=== PATIENT | female | born 1975 | race Caucasian/White ===

== ENCOUNTER 2017-03-05 10:19 | Emergency (ER) | payer OTHER ==
[~2017-03-05] VITALS: Ht 165.1 cm; Wt 59.8 kg
[~2017-03-05 10:19] MED LIST: ATARAX,VISTARIL50 MG PO; MACROBID100 MG PO; MOTRIN800 MG PO; NAPROSYN500 MG PO; NEXIUM40 MG PO; PROVENTIL HFA6.7 GM IH; PYRIDIUM100 MG PO; SEROQUEL100 MG PO; ZITHROMAX Z-PA250 MG PO; ZOFRAN4 MG PO
[2017-03-05] MEDS ORDERED: NAPROXEN500 MG PO (11:36)
[2017-03-05 12:12] VITALS: BP 114/60
== END 2017-03-05 12:12 | disposition home or self-care (01) ==
LOC: EME 10:19
DX: S39.012A Strain of muscle, fascia and tendon of lower back, initial encounter (principal); S16.1XXA Strain of muscle, fascia and tendon at neck level, initial encounter; W01.0XXA Fall on same level from slipping, tripping and stumbling without subsequent striking against object, initial encounter; Y99.0 Civilian activity done for income or pay; Z88.6 Allergy status to analgesic agent; Z87.891 Personal history of nicotine dependence
CPT/HCPCS: 73030; 73502; 99281; 99283

== ENCOUNTER 2017-11-29 12:15 | Emergency (ER) | payer BC ==
[~2017-11-29] VITALS: Ht 165.1 cm; Wt 69.8 kg
[~2017-11-29 12:15] MED LIST changes: +NAPROXEN500 MG PO
[2017-11-29 12:44] LABS: BASOPHIL (%) 0.4 % (0-1); EOSINOPHIL (%) 2.5 % (0-5); EOSINOPHIL COUNT 0.2 K/uL (0-0.3); HEMATOCRIT 38.6 % (36.0-46.0); HEMOGLOBIN 12.9 G/DL (11.9-15.5); IMMATURE GRANULOCYTE (%) 0.2 % (0.0-0.7); LYMPHOCYTE (%) 49.2 % (15-42); LYMPHOCYTE COUNT 4.5 K/uL (1.0-2.8); MCH 31.7 PG (29.0-34.0); MCHC 33.4 G/DL (30.0-36.0); MCV 94.8 FL (83-99); MONOCYTE (%) 6.3 % (3-12); MONOCYTE COUNT 0.6 K/uL (0-0.8); NEUTROPHIL (%) 41.4 % (45-76); NEUTROPHIL COUNT 3.8 K/uL (1.8-6.4); NRBC (%) 0.2 /100 WBC (0-0); PLATELET COUNT 225 K/uL (156-360); RBC DIS.WIDTH-CV 13.5 % (11.8-14.6); RBC DIS.WIDTH-SD 47.3 % (39-53); RED BLOOD COUNT 4.07 M/uL (3.80-5.20); WHITE BLOOD COUNT 9.1 K/uL (4.1-10.2)
[2017-11-29 12:53] LABS: CHLORIDE 105 mEq/L (99-109); POTASSIUM 4.5 mEq/L (3.7-5.4); SODIUM 139 mEq/L (136-147)
[2017-11-29 12:55] LABS: GLUCOSE 84 mg/dL (70-99)
[2017-11-29 12:59] LABS: CREATININE 0.8 mg/dL (0.6-1.3); GFR ESTIMATE (CALCULATED) > 59 mL/min/; UREA NITROGEN (BUN) 14 mg/dL (9-23)
[2017-11-29] MEDS ORDERED: MECLIZINE HCL25 MG PO (14:15)
[2017-11-29 14:45] VITALS: BP 109/69
== END 2017-11-29 15:01 | disposition home or self-care (01) ==
LOC: EME 12:15
PROVIDERS: Emergency Medicine
DX: R42 Dizziness and giddiness (principal); R11.0 Nausea; Z87.891 Personal history of nicotine dependence
CPT/HCPCS: 80048; 84443; 85025; 93005; 99281; 99284; J7030